=== PATIENT | male | born 1955 | race Caucasian/White ===

== ENCOUNTER 2021-07-31 08:19 | Emergency (ER) | payer OTHER, SELFPAY ==
[2021-07-31 08:21] VITALS: BP 160/90; PULSE 93; RESP 16; TEMP 36.5; BMI 29.2
[2021-07-31 08:25] VITALS: O2SAT 99
--- NOTE | 2021-07-31 08:49 | VDLE_ITS ---
Reason For Study: Pain Procedure LEFT This is a venous duplex using B-mode, color CFV is compressible, spontaneous, phasic, flow and spectral Doppler. competent, and demonstrates normal Exam performed portable in ED. augmentation. A preliminary report was called and/or faxed FV is compressible, spontaneous, phasic, to ED. competent and demonstrates normal augmentation. POP V is compressible, spontaneous, phasic, competent and demonstrates normal augmentation. T/P Trunk is compressible. PTV is compressible. LT PerV is compressible. Acute superficial vein thrombosis is noted in the left GSV proximal calf. Thrombus filled varicose veins are noted in the left proximal calf. VL/Venous Duplex US, Unilateral Interpretation Summary There is no evidence of left lower extremity deep vein thrombosis. Superficial thrombophlebitis left great saphenous vein in the proximal calf with involvement of varicosities in t he same region. Ordering Physician: Thomas Nguyễn Performed By: Heaven Garcia RVT
--- NOTE | 2021-07-31 08:51 | ED.VIS.LOWEX ---
HPI History of Present Illness HPI Narrative: Patient presents with pain and swelling to his left lower leg for the past 3 to 4 days. Patient states it is gradually getting worse. Patient states it is constant. Patient describes the pain as sharp, burning, and stabbing. Patient states the pain is worse with weightbearing. Patient denies any paresthesias or weakness. Patient denies any trauma or injury. Patient denies any fevers or chills. Patient is concerned that this could be a blood clot in his calf. Chief Complaint: Lower Extremity Injury Informant: patient Onset/Context/Timing Onset: Days (3-4) Context: Gradual Onset Timing: Continuous Quality of Pain: Sharp, Aching and Stabbing Location: Proximal left posterior calf Worsened by: Weightbearing Relieved by: Nothing Associated Symptoms Associated Symptoms: Negative for Parasthesia, Weakness and Loss of Funtion PFSH PFSH Medical History no medical history no medical history Home Medications cephalexin 500 mg PO Q6 #40 capsule 07/31/21 [Rx Last Taken Unknown] Allergy/AdvReac Type Severity Reaction Status Date / Time No Known Allergies Allergy Verified 07/31/21 08:24 Surgical History no surgical history no surgical history Social History (Updated 07/31/21 @ 08:[address] Thomas Nguyễn, DO) Smoking Status: Current some day smoker ROS ROS ED Constitutional Constitutional ED: Denies chills or fever(s) Eyes Eyes: Denies blurry vision or change in vision ENT ENT ED: Denies rhinorrhea or sore throat Cardiovascular Cardiovascular: Denies chest pain or palpitations Respiratory/Chest Respiratory/Chest: Denies cough or dyspnea Gastrointestinal Gastrointestinal: Denies nausea or vomiting Genitourinary Genitourinary ED: Denies dysuria or hematuria Musculoskeletal Musculoskeletal: Denies back pain or neck pain Integumentary Denies abscess or rash Neurologic Neurologic: Denies headache(s) or weakness Allergic/Immunologic Allergic/Immunologic ED: Denies mouth swelling or urticaria EXAM Physical Exam Const Vital Signs: 07/31/21 08:21 07/31/21 08:25 Temperature 97.7 F L Temperature Source Temporal Pulse Rate 93 Respiratory Rate 16 Blood Pressure 160/90 H Blood Pressure Mean 113 Pulse Ox 99 Oxygen Delivery Method Room Air Positive well nourished and well developed General Appearance ED: well developed HEENT Reports moist mucous membranes Neck full ROM Extremity Extremity Narrative: There is edema, erythema, and warmth over the posterior aspect of the left proximal calf. There is some induration. There is no fluctuance or evidence of any abscess. There is no discharge or drainage. There is no lymphangitic streaking noted. Neuro oriented x3, CN's II-XII intact bilaterally, moves all extremities and no sensory deficits noted Sensorium / Orientation: alert Motor Exam: strength 5/5 throughout Psych mental status grossly normal MDM MDM MDM Narrative Medical decision making narrative: Venous duplex of the left lower extremity was obtained. There is no evidence of DVT. There is some superficial thrombophlebitis noted. Patient was advised of his findings. There does appear to be some cellulitis there as well. Patient was given a prescription for Keflex. Patient was instructed to keep his leg elevated. Patient was instructed to follow-up with his primary care physician in 5 to 7 days. Patient understood and was agreeable with the plan. All questions were answered. Discharge Plan Triage Chief Complaint: Lower Extremity Injury ED Provider: Thomas Nguyễn Dx/Rx/DC Orders Clinical Impression: Phlebitis of superficial vein of left lower extremity, Cellulitis of left lower leg Instructions: ED Cellulitis, ED Thrombophlebitis, Superficial Prescriptions: New cephalexin [cephalexin] 500 MG capsule 500 mg PO Q6 Qty: 40 RF: 0 Primary Care Provider: Care Physician,No Primary Referrals: Kodak Cooley MD [STAFF PHYSICIAN] - 5-7 Days Care Physician,No Primary [Primary Care Provider] - Disposition Disposition: Home, Self Care
[2021-07-31] MEDS: Cephalexin 500 MG Capsule PO (10:15)
== END 2021-07-31 10:22 | disposition home or self-care (01) ==
PROVIDERS: Emergency Provider Emergency Medicine; Visit Provider Emergency Medicine
DX: L03.116 Cellulitis of left lower limb (principal); I80.02 Phlebitis and thrombophlebitis of superficial vessels of left lower extremity; F17.200 Nicotine dependence, unspecified, uncomplicated
CPT/HCPCS: 93971; 99283